=== PATIENT | female | born 1955 | race American Indian/Alaskan Native ===

== ENCOUNTER 2019-11-05 18:29 | Outpatient (CLI) | payer BC ==
--- NOTE | 2019-11-05 20:27 | XRay Report ---
CHEST PA AND LATERAL VIEWS INDICATION: MAIN: CHEST PAIN; CANNOT HAVE PPD DONE, HAD TO HAVE CHEST XRAY. COMPARISON: 10/28/2015 FINDINGS: Support devices: None Heart: Normal and unchanged Lungs/Pleura: No acute pulmonary or pleural findings. IMPRESSION: 1. No significant abnormality and no interval change. Signer Name: Chase Benjamin MD Signed: 11/05/2019 8:22 PM Workstation Name: [id number]
== END 2019-11-05 19:17 | disposition home or self-care (01) ==
LOC: EDSTATUS 19:01 → XRAY 19:16
PROVIDERS: ATTEND Family Medicine
DX: R07.9 Chest pain, unspecified (principal)
CPT/HCPCS: 71046

== ENCOUNTER 2022-04-10 20:04 | Emergency (ER) | payer SELFPAY ==
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
[2022-04-11 07:56] VITALS: BP 110/65
== END 2022-04-11 07:56 | disposition home or self-care (01) ==
LOC: ED 20:04
DX: S06.9X9A Unspecified intracranial injury with loss of consciousness of unspecified duration, initial encounter (principal); M79.89 Other specified soft tissue disorders; M89.9 Disorder of bone, unspecified; I10 Essential (primary) hypertension; Z98.890 Other specified postprocedural states; Y09 Assault by unspecified means; Y93.89 Activity, other specified; Y92.89 Other specified places as the place of occurrence of the external cause; Y99.8 Other external cause status
CPT/HCPCS: 70450; 99283